=== PATIENT | female | born 1955 | race Two or more races ===

== ENCOUNTER 2016-12-10 08:40 | Emergency (ER) | payer OTHER ==
[~2016-12-10] VITALS: Ht 162.6 cm; Wt 77.1 kg
[2016-12-10] MEDS ORDERED: PROMETRIUM100 MG PO (08:56)
[2016-12-10] MEDS ORDERED: SYNTHROID112 MCG ORAL (08:56)
[2016-12-10] MEDS ORDERED: DIVIGEL0.25 MG TD (08:56)
[2016-12-10 09:16] VITALS: BP 131/77
[2016-12-10] MEDS ORDERED: IBUPROFEN600 MG ORAL (09:18)
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
[2016-12-10 10:34] VITALS: BP 128/76
[2016-12-10 10:36] VITALS: BP 128/76
--- NOTE | 2016-12-10 13:08 | Diagnostic Imaging Report ---
Indications: Right foot twisting injury, pain Technique: 3 views right foot. Findings: Comparison: None No fracture, dislocation, joint space widening , surrounding soft tissue swelling/foreign body/other abnormality, or other acute changes are identified. Old osteotomy defect medial margin first metatarsal head. Fixation screw first metatarsal base. Prominent spurs plantar and posterior aspects of calcaneus. IMPRESSION: No evidence of acute injury. Previous first metatarsal surgery Calcaneal enthesophytes
== END 2016-12-10 10:37 | disposition home or self-care (01) ==
LOC: EMR 09:37
DX: S93.401A Sprain of unspecified ligament of right ankle, initial encounter (principal); S93.601A Unspecified sprain of right foot, initial encounter; M79.1 Myalgia; W19.XXXA Unspecified fall, initial encounter; Y93.9 Activity, unspecified; Y92.219 Unspecified school as the place of occurrence of the external cause; Y99.0 Civilian activity done for income or pay; Z85.850 Personal history of malignant neoplasm of thyroid
CPT/HCPCS: 99283